=== PATIENT | female | born 1970 | race Caucasian/White ===

== ENCOUNTER → 2016-06-09 | Outpatient (CLI) | payer MEDICARE ==
[2016-06-09 16:02] LABS: HEMOGLOBIN 12.1 gm/dl (12.3-15.3); RED BLOOD COUNT 4.11 M/UL (4.00-5.10); WHITE BLOOD COUNT 6.3 K/UL (4.5-11.0)
== END ==
LOC: LAB 15:22
DX: M54.2 Cervicalgia (principal); M54.9 Dorsalgia, unspecified; I10 Essential (primary) hypertension; M47.816 Spondylosis without myelopathy or radiculopathy, lumbar region
CPT/HCPCS: 36415; 72050; 72110; 80053; 80061; 82550; 83036; 84439; 84443; 85027; 86141

== ENCOUNTER 2016-06-12 | Emergency (ER) | payer MEDICARE | END 2016-06-13 05:10 | disposition home or self-care (01) | DX: S63.501A Unspecified sprain of right wrist, initial encounter (principal); S80.02XA Contusion of left knee, initial encounter; W01.0XXA Fall on same level from slipping, tripping and stumbling without subsequent striking against object, initial encounter | CPT/HCPCS: 73110; 73502; 73564; 99283 ==

== ENCOUNTER → 2020-07-12 | Outpatient (CLI) | payer MEDICARE ==
[~2020-07-12] MED LIST: AUGMENTIN 875-1 EACH PO; HYDROCODON-ACE1 EAC4 PO; KEFLEX CAP 500500 MG PO; LODINE CAP 300300 MG PO
[2020-07-13 10:15] LABS: CREATININE, URINE 129.7 mg/dL (Not Estab.)
== END ==
LOC: LAB 13:50
PROVIDERS: Internal Medicine Nephrology
DX: N18.30 Chronic kidney disease, stage 3 unspecified (principal)
CPT/HCPCS: 36415; 80048; 82043; 82570

== ENCOUNTER → 2020-07-20 | Outpatient (CLI) | payer MEDICARE | LOC: US 11:00 | DX: N18.30 Chronic kidney disease, stage 3 unspecified (principal) | CPT/HCPCS: 76857 ==

== ENCOUNTER 2020-10-04 15:35 | Emergency (ER) | payer MEDICARE ==
[~2020-10-04 15:35] MED LIST changes: -AUGMENTIN 875-1 EACH PO; -HYDROCODON-ACE1 EAC4 PO
[2020-10-04] MEDS ORDERED: AUGMENTIN 875-1 EACH PO (15:59)
[2020-10-04] MEDS ORDERED: HYDROCODON-ACE1 EAC4 PO (15:59)
== END 2020-10-04 16:20 | disposition home or self-care (01) ==
LOC: ER1 15:35
DX: H66.91 Otitis media, unspecified, right ear (principal); I12.9 Hypertensive chronic kidney disease with stage 1 through stage 4 chronic kidney disease, or unspecified chronic kidney disease; E11.22 Type 2 diabetes mellitus with diabetic chronic kidney disease; N18.9 Chronic kidney disease, unspecified
CPT/HCPCS: 99282

== ENCOUNTER → 2021-01-12 | Outpatient (CLI) | payer MEDICARE ==
[~2021-01-12] MED LIST changes: +AUGMENTIN 875-1 EACH PO; +HYDROCODON-ACE1 EAC4 PO
[2021-01-12 12:35] LABS: BUN/CREATININE RATIO 21 (0-10)
[2021-01-13 07:08] LABS: CREATININE, URINE 245.3 mg/dL (Not Estab.)
== END ==
LOC: LAB 11:16
PROVIDERS: Internal Medicine Nephrology
DX: E11.22 Type 2 diabetes mellitus with diabetic chronic kidney disease (principal); N18.30 Chronic kidney disease, stage 3 unspecified
CPT/HCPCS: 80048; 80061; 82043; 82570; 82607; 84443

== ENCOUNTER 2021-01-29 18:28 | Inpatient (IN) | payer MEDICARE, MEDICAID ==
[~2021-01-29] VITALS: Ht 172.7 cm; Wt 92.3 kg
[2021-01-29 18:50] LABS: HEMOGLOBIN 14.3 gm/dl (12.3-15.3); RED BLOOD COUNT 4.64 M/UL (4.00-5.10); WHITE BLOOD COUNT 10.9 K/UL (4.5-11.0)
[2021-01-29 19:22] LABS: BUN/CREATININE RATIO 29 (0-10)
[2021-01-29] MEDS ORDERED: CITALOPRAM HBR40 MG PO (22:22)
[2021-01-29] MEDS ORDERED: TRULICITY3 MG/0.5 M SQ (22:22)
[2021-01-29] MEDS ORDERED: LISINOPRIL2.5 MG PO (22:22)
[2021-01-29] MEDS ORDERED: ALDACTONE 25MG25 MG PO (22:22)
[2021-01-29] MEDS ORDERED: OMEPRAZOLE20 MG PO (22:23)
[2021-01-29] MEDS ORDERED: JARDIANCE10 MG PO (22:23)
[2021-01-29] MEDS ORDERED: ALPRAZOLAM1 MG PO (22:23)
[2021-01-29] MEDS ORDERED: GABAPENTIN800 MG PO (22:23)
[2021-01-29] MEDS ORDERED: HUMALOG100 UNIT/3 SC (22:23)
[2021-01-29] MEDS ORDERED: ESTRADIOL2 MG PO (22:23)
[2021-01-29] MEDS ORDERED: DILTIAZEM ER180 M1 PO (22:24)
[2021-01-29] MEDS ORDERED: TRESIBA FL100 UNIT/1 SQ (22:24)
[2021-01-29] MEDS ORDERED: FENOFIBRATE160 MG PO (22:24)
[2021-01-29] MEDS ORDERED: LEVOTHYROXINE100 MCG PO (22:25)
[2021-01-29] MEDS ORDERED: HYDROCHLOROTHIA25 MG PO (22:25)
[2021-01-30 04:13] LABS: HEMOGLOBIN 13.5 gm/dl (12.3-15.3); RED BLOOD COUNT 4.39 M/UL (4.00-5.10)
[2021-01-30 04:27] LABS: WHITE BLOOD COUNT 7.8 K/UL (4.5-11.0)
[2021-01-30] MEDS ORDERED: CRESTOR40 MG PO (13:29)
[2021-01-31 04:50] LABS: HEMOGLOBIN 12.7 gm/dl (12.3-15.3); RED BLOOD COUNT 4.17 M/UL (4.00-5.10); WHITE BLOOD COUNT 7.2 K/UL (4.5-11.0)
[2021-02-01 03:07] LABS: HEMOGLOBIN 15.1 gm/dl (12.3-15.3); RED BLOOD COUNT 4.88 M/UL (4.00-5.10); WHITE BLOOD COUNT 10.4 K/UL (4.5-11.0)
[2021-02-02 06:46] LABS: HEMOGLOBIN 14.5 gm/dl (12.3-15.3); RED BLOOD COUNT 4.77 M/UL (4.00-5.10); WHITE BLOOD COUNT 9.8 K/UL (4.5-11.0)
[2021-02-03 10:48] LABS: HEMOGLOBIN 14.4 gm/dl (12.3-15.3); RED BLOOD COUNT 4.72 M/UL (4.00-5.10); WHITE BLOOD COUNT 10.9 K/UL (4.5-11.0)
--- NOTE | 2021-02-03 17:18 | NUR ---
DR. HERNANDEZ NOTIFIED OF OF 408. NEW ORDERS NOTED INCLUDING 5 EXTRA UNITS OF HUMALOG TO TOTAL 20 UNITS X1, AND INCREASE LANTUS TO 15 UNITS BID, GIVE 5 UNITS NOW.
[2021-02-04 06:00] LABS: HEMOGLOBIN 15.1 gm/dl (12.3-15.3); RED BLOOD COUNT 4.96 M/UL (4.00-5.10); WHITE BLOOD COUNT 12.9 K/UL (4.5-11.0)
--- NOTE | 2021-02-04 16:44 | NUR ---
PATIENT'S BLOOD GLUCOSE 405. NOTIFIED DR. HERNANDEZ. NEW ORDERS NOTED TO ADD 5 ADDITIONAL UNITS OF HUMALOG X1 WELL INCREASE LANTUS TO 20 UNITS BID.
[2021-02-05 06:54] LABS: HEMOGLOBIN 15.5 gm/dl (12.3-15.3); RED BLOOD COUNT 5.1 M/UL (4.00-5.10); WHITE BLOOD COUNT 11.5 K/UL (4.5-11.0)
[2021-02-05 07:33] LABS: BUN/CREATININE RATIO 50 (0-10)
[2021-02-06 02:40] LABS: HEMOGLOBIN 15.2 gm/dl (12.3-15.3); RED BLOOD COUNT 5.21 M/UL (4.00-5.10); WHITE BLOOD COUNT 9.2 K/UL (4.5-11.0)
[2021-02-06 03:09] LABS: BUN/CREATININE RATIO 51 (0-10)
--- NOTE | 2021-02-06 13:23 | NUR ---
PATIENT ROOM AIR OXYGEN SATURATION 85%
[2021-02-06] MEDS ORDERED: DECADRON6 MG PO (15:59)
[2021-02-06] MEDS ORDERED: IPRAT-ALBUT 0.5-3 ML INH (15:59)
[2021-02-06] MEDS ORDERED: ELIQUIS 2.5 MG2.5 MG PO (15:59)
[2021-02-06] MEDS ORDERED: HYDRALAZINE HCL25 MG PO (16:01)
[2021-02-06] MEDS ORDERED: DEX4 GLUCOSE4 GM PO (16:20)
--- NOTE | 2021-02-07 00:11 | NUR ---
AT 183 DR. BOWDEN ORDERED HUMULIN R IVP WAS ADMINSTERED AT 190. WANTED RECHECKED AT 1944 IF BLOOD SUGAR BELOW 300 PT CAN BE D/C HOME. RECHEC AT 1944 WAS 581, SECOND READING WAS 546. NOTIFIED DR GAINES AT 1954 STATED WILL KEEP PATIENT TONIGHT AND STATED HE WAS GOING TO ORDER HUMALOG 30 UNITS. AT 1999 CALLED AND ORDERED TO CHECK PT BLOOD SUGAR EVERY 2HRS UNTIL BELOW 400. ADMINSTERED HUMALOG 30 UNITS AND LANTUS. RECHECKED AT 2144 BLOOD SUGAR WAS 487. NOTIFIED DR JURADO HE ORDERED HUMALOG 20 UNITS. AT 2HR RECHECK AT 2345 PT BLOOD SUGAR WAS 331. PT IN BED RESTING. WILL CONTINUE TO MONITOR PT.
[2021-02-07 07:38] LABS: HEMOGLOBIN 14.7 gm/dl (12.3-15.3); RED BLOOD COUNT 5.09 M/UL (4.00-5.10); WHITE BLOOD COUNT 10.7 K/UL (4.5-11.0)
== END 2021-02-07 12:02 | disposition home or self-care (01) | DRG 177 ==
LOC: ER1 18:28 → CDU 20:54 → M/S 20:54
PROVIDERS: Internal Medicine; Physician Assistant; Physician Assistant Medical; ADMIT Internal Medicine
PROC: XW033E5 Introduction of Remdesivir Anti-infective into Peripheral Vein, Percutaneous Approach, New Technology Group 5 (ICD-10-PCS; 2021-01-26)
PROC: 3E0333Z Introduction of Anti-inflammatory into Peripheral Vein, Percutaneous Approach (ICD-10-PCS; 2021-01-26)
PROC: 8E0ZXY6 Isolation (ICD-10-PCS; principal; 2021-01-29)
PROC: XW033H5 Introduction of Tocilizumab into Peripheral Vein, Percutaneous Approach, New Technology Group 5 (ICD-10-PCS; 2021-01-30)
PROC: 5A0955A Assistance with Respiratory Ventilation, Greater than 96 Consecutive Hours, High Flow/Velocity Cannula (ICD-10-PCS; 2021-01-30)
DX: U07.1 COVID-19 (principal); J12.82 Pneumonia due to coronavirus disease 2019; J96.01 Acute respiratory failure with hypoxia; E87.1 Hypo-osmolality and hyponatremia; N17.9 Acute kidney failure, unspecified; E66.01 Morbid (severe) obesity due to excess calories; I12.9 Hypertensive chronic kidney disease with stage 1 through stage 4 chronic kidney disease, or unspecified chronic kidney disease; F41.9 Anxiety disorder, unspecified; E86.0 Dehydration; G62.9 Polyneuropathy, unspecified; K21.9 Gastro-esophageal reflux disease without esophagitis; E03.9 Hypothyroidism, unspecified; E78.5 Hyperlipidemia, unspecified; E11.65 Type 2 diabetes mellitus with hyperglycemia; N18.30 Chronic kidney disease, stage 3 unspecified; E87.6 Hypokalemia; T38.0X5A Adverse effect of glucocorticoids and synthetic analogues, initial encounter; E87.5 Hyperkalemia; E11.22 Type 2 diabetes mellitus with diabetic chronic kidney disease; Z79.4 Long term (current) use of insulin; Z79.01 Long term (current) use of anticoagulants; Z79.52 Long term (current) use of systemic steroids; Z90.49 Acquired absence of other specified parts of digestive tract; Z90.710 Acquired absence of both cervix and uterus; Z82.49 Family history of ischemic heart disease and other diseases of the circulatory system; Z23 Encounter for immunization; Z68.30 Body mass index [BMI] 30.0-30.9, adult
CPT/HCPCS: 36415; 36600; 71045; 80048; 80053; 81001; 82550; 82553; 82728; 82803; 82962; 83605; 83615; 83735; 83874; 84484; 85025; 85027; 85379; 86140; 87040; 93005; 94640; 94664; 94760; 96374; 97161; 99285; J0456; J0696; J1100; J1650; J1940; J2550; J7030; Q0249; U0002

== ENCOUNTER → 2021-02-20 | Outpatient (CLI) | payer MEDICARE ==
[~2021-02-20] MED LIST changes: +ALDACTONE 25MG25 MG PO; +ALPRAZOLAM1 MG PO; +CITALOPRAM HBR40 MG PO; +CRESTOR40 MG PO; +DECADRON6 MG PO; +DEX4 GLUCOSE4 GM PO; +DILTIAZEM ER180 M1 PO; +ELIQUIS 2.5 MG2.5 MG PO; +ESTRADIOL2 MG PO; +FENOFIBRATE160 MG PO; +GABAPENTIN800 MG PO; +HUMALOG100 UNIT/3 SC; +HYDRALAZINE HCL25 MG PO; +HYDROCHLOROTHIA25 MG PO; +IPRAT-ALBUT 0.5-3 ML INH; +JARDIANCE10 MG PO; +LEVOTHYROXINE100 MCG PO; +LISINOPRIL2.5 MG PO; +OMEPRAZOLE20 MG PO; +TRESIBA FL100 UNIT/1 SQ; +TRULICITY3 MG/0.5 M SQ
[2021-02-20 13:22] LABS: BUN/CREATININE RATIO 18 (0-10)
== END ==
LOC: LAB 11:30
PROVIDERS: Internal Medicine
DX: U07.1 COVID-19 (principal)
CPT/HCPCS: 36415; 80048

== ENCOUNTER → 2021-05-03 | Outpatient (CLI) | payer MEDICARE ==
[2021-05-05 06:41] LABS: CREATININE, URINE 154.4 mg/dL (Not Estab.)
== END ==
LOC: LAB 15:11
PROVIDERS: Internal Medicine Nephrology
DX: N18.31 Chronic kidney disease, stage 3a (principal)
CPT/HCPCS: 36415; 80048; 82043; 82570; 84156

== ENCOUNTER 2021-10-20 20:44 | Emergency (ER) | payer MEDICARE ==
[2021-10-20 21:38] LABS: HEMOGLOBIN 13.3 gm/dl (12.3-15.3); RED BLOOD COUNT 4.38 M/UL (4.00-5.10); WHITE BLOOD COUNT 8.7 K/UL (4.5-11.0)
[2021-10-21] MEDS ORDERED: COLCHICINE0.6 M1 PO (00:56)
[2021-10-21] MEDS ORDERED: HYDROCODON-ACE1 EAC4 PO (00:56)
[2021-10-21] MEDS ORDERED: OMNICEF 300 MG300 MG PO (00:56)
== END 2021-10-21 01:05 | disposition home or self-care (01) ==
LOC: ER1 20:44
PROVIDERS: Student in an Organized Health Care Education/Training Program
DX: M79.674 Pain in right toe(s) (principal); M10.9 Gout, unspecified; L08.9 Local infection of the skin and subcutaneous tissue, unspecified; E11.22 Type 2 diabetes mellitus with diabetic chronic kidney disease; I12.9 Hypertensive chronic kidney disease with stage 1 through stage 4 chronic kidney disease, or unspecified chronic kidney disease; N18.9 Chronic kidney disease, unspecified; E78.5 Hyperlipidemia, unspecified
CPT/HCPCS: 73630; 80053; 84550; 85025; 85652; 86140; 96372; 99283; J0696

== ENCOUNTER → 2021-11-07 | Outpatient (CLI) | payer MEDICARE ==
[~2021-11-07] MED LIST changes: +COLCHICINE0.6 M1 PO; +OMNICEF 300 MG300 MG PO
== END ==
LOC: LAB 10:20
PROVIDERS: Family Medicine
DX: M10.09 Idiopathic gout, multiple sites (principal)
CPT/HCPCS: 36415; 80053